=== PATIENT | female | born 1945 | race Asian ===

== ENCOUNTER 2017-11-08 13:23 | Emergency (ER) | payer OTHER ==
[~2017-11-08] VITALS: Ht 129.5 cm; Wt 59.0 kg
[~2017-11-08 13:23] MED LIST: AMLO5TAB PO; COZ50 PO; FERR-15 PO; NIFE60TE5 PO; PANT40EC PO; WARF3TAB PO; [UNRECOGNIZED DRUG - CODE] PO
[2017-11-08 13:47] VITALS: BP 171/82
--- NOTE | 2017-11-08 14:48 | NUR ---
Patient being evaluated by physician at bedside.
--- NOTE | 2017-11-08 14:54 | NUR ---
72Y/F C/O LT HIP PAIN X 3 DAYS; DENIES TRAUMA OR INJURY. HX; DM, HTN. RX; LISINOPRIL, LOSARTAN, PROCARDIA. PATIENT STATES PAIN OF 10/10 AT THIS TIME; PATIENT POSITIONED FOR COMFORT; ER MD MADE AWARE OF PT STATUS.
--- NOTE | 2017-11-08 14:59 | NUR ---
PT WENT TO RADIOLOGY
[2017-11-08 16:35] VITALS: BP 168/79
--- NOTE | 2017-11-08 16:35 | NUR ---
Patient discharged with v/s stable. Written and verbal after care instructions given and explained. Patient alert, oriented and verbalized understanding of instructions. Wheel Chair Assisted with by caregiver. All questions addressed prior to discharge. ID band removed. Patient advised to follow up with PMD. Rx of TYLENOL W/CODIENE given. Patient educated on indication of medication including possible reaction and side effects. Opportunity to ask questions provided and answered.
== END 2017-11-08 16:35 | disposition home or self-care (01) ==
LOC: MED 13:23
DX: M70.72 Other bursitis of hip, left hip (principal); Y93.89 Activity, other specified; Z91.041 Radiographic dye allergy status
CPT/HCPCS: 73502; 99284

== ENCOUNTER 2018-05-20 12:54 | Emergency (ER) | payer OTHER ==
[~2018-05-20] VITALS: Ht 129.5 cm; Wt 61.7 kg
[2018-05-20 13:08] VITALS: BP 139/59
--- NOTE | 2018-05-20 13:08 | NUR ---
PT AMBULATES TO BED 9
--- NOTE | 2018-05-20 13:15 | NUR ---
BIB BY MOTHER W/C/O FALL TODAY AT 1200. PT STATES SHE WAS GOING FOR HER WALKER AND FELL ON HER BOTTOM ON THE CARPET. PT DENIES HITTING HER HEAD. DENIES LOC. PT AAOX4, AMBULATORY. PT DENIES N/V/D; SKIN IS PINK/WARM/DRY; AAOX4, PERRL, WITH EVEN AND STEADY GAIT; LUNGS CLEAR BL, BREATHING UNLABORED; HR EVEN AND REGULAR, BL PERIPHERAL PULSES PRESENT; BS ACTIVE X4, NO TENDERNESS TO PALPATION, NO HEPATOSPLENOMEGALLY PALPATED, RESONANT TO PERCUSSION; PT DENIES ANY FEVER, CP, SOB, OR COUGH AT THIS TIME; PT STATES 6/10 PAIN AT THIS TIME; VSS; PATIENT POSITIONED FOR COMFORT; HOB ELEVATED; BEDRAILS UP X2; BED DOWN. HX: COLON CA SX, OPEN HEART SURGERY, HTN RX: ATENALOL, COUMADIN, AMLODIPINE, CARVIDILOL ALLERGIES: SEAFOOD, IODINE
--- NOTE | 2018-05-20 13:16 | NUR ---
PT HAS 4.5CMX 0.5CM LAC TO R KNEE, BLEEDING WELL CONTROLLED
--- NOTE | 2018-05-20 13:23 | NUR ---
PT MOTHER INFORMED ME AT THIS TIME THAT PT HAS HAD DIARRHEA X2 DAYS AND THAT IS WHY SHE FELL. DR. VALENTINE MADE AWARE
[2018-05-20] MEDS ORDERED: KETOROLAC 60 MG/2 ML VIAL IM ONE (13:30)
--- NOTE | 2018-05-20 13:43 | NUR ---
PT TAKEN TO X-RAY AT THIS TIME
--- NOTE | 2018-05-20 13:50 | NUR ---
Abraham estevez in ED - 05/20/18 at 1441 by PATRICIO PT BACK FROM X-RAY
--- NOTE | 2018-05-20 13:57 | NUR ---
PT BACK FROM X-RAY
[2018-05-20 14:02] LABS: BASOPHILS % (AUTO) 0.3 % (0.0-2.0); EOSINOPHILS # (AUTO) 0.3 K/uL (0-0.4); HEMATOCRIT 35.7 % (36-48); HEMOGLOBIN 11.7 g/dL (12.0-16.0); LYMPHOCYTES # (AUTO) 0.3 K/uL (2.5-16.5); LYMPHOCYTES % (AUTO) 3.3 % (20.5-51.1); MEAN CORPUSCULAR HEMOGLOBIN 29 pg (27-31); MEAN CORPUSCULAR HGB CONC 33 g/dL (33-37); MEAN CORPUSCULAR VOLUME 89.8 fL (80-94); MONOCYTES # (AUTO) 0.9 K/uL (0.8-1.0); MONOCYTES % (AUTO) 9.1 % (1.7-9.3); NEUTROPHILS # (AUTO) 8.4 K/uL (1.8-7.7); NEUTROPHILS % (AUTO) 84.3 % (42.2-75.2); PLATELET COUNT (AUTO) 154 K/uL (140-450); RED BLOOD CELL COUNT(AUTO) 3.98 MIL/uL (4.20-5.40); RED CELL DISTRIBUTION WIDTH 13.5 % (11.6-13.7)
[2018-05-20 14:11] LABS: ANION GAP 9.1 (8-16); CARBON DIOXIDE 32.1 mmol/L (21-32); CHLORIDE 103 mmol/L (98-107); CREATININE 1.1 mg/dL (0.6-1.3); GLUCOSE 167 mg/dL (74-106); POTASSIUM 3.2 mmol/L (3.5-5.1); SODIUM SERUM 141 mmol/L (136-145); UREA NITROGEN, BLOOD 23 mg/dL (7-18)
[2018-05-20 14:18] LABS: ALBUMIN 2.9 g/dL (3.4-5.0); ASPARTATE AMINOTRANSFERASE 46 U/L (15-37); TOTAL BILIRUBIN 0.4 mg/dL (0.0-1.0)
[2018-05-20 14:21] LABS: APPEARANCE,URINE CLEAR (CLEAR); COLOR,URINE YELLOW (YELLOW)
[2018-05-20 14:22] LABS: BILIRUBIN,URINE NEGATIVE (NEGATIVE); BLOOD, URINE NEGATIVE (NEGATIVE); LEUKOCYTE ESTERASE ,URINE NEGATIVE (NEGATIVE); NITRITE, URINE NEGATIVE (NEGATIVE); UGLUCOSE NEGATIVE (NEGATIVE)
[2018-05-20] MEDS ORDERED: POTASSIUM CHLORIDE 10 MEQ TABER PO ONE (15:20)
--- NOTE | 2018-05-20 15:21 | NUR ---
Patient being evaluated by physician at bedside.
[2018-05-20 15:54] VITALS: BP 135/72
--- NOTE | 2018-05-20 15:55 | NUR ---
Patient discharged with v/s stable. Written and verbal after care instructions given and explained. Patient alert, oriented and verbalized understanding of instructions. Ambulatory with steady gait. All questions addressed prior to discharge. ID band removed. Patient advised to follow up with PMD. Rx of IMODIUM, MOTRIN given. Patient educated on indication of medication including possible reaction and side effects. Opportunity to ask questions provided and answered.
== END 2018-05-20 15:55 | disposition home or self-care (01) ==
LOC: MED 12:54
DX: S81.011A Laceration without foreign body, right knee, initial encounter (principal); R19.7 Diarrhea, unspecified; I10 Essential (primary) hypertension; Z85.038 Personal history of other malignant neoplasm of large intestine; Z91.013 Allergy to seafood; Z88.8 Allergy status to other drugs, medicaments and biological substances; Z79.899 Other long term (current) drug therapy; W18.39XA Other fall on same level, initial encounter; Y93.89 Activity, other specified; Y92.89 Other specified places as the place of occurrence of the external cause; Y99.8 Other external cause status
CPT/HCPCS: 12002; 36415; 72220; 80053; 81003; 85025; 96372; 99285; J1885

== ENCOUNTER 2018-09-26 09:10 | Emergency (ER) | payer OTHER ==
[~2018-09-26] VITALS: Ht 142.2 cm; Wt 59.0 kg
[2018-09-26 09:30] VITALS: BP 122/48
--- NOTE | 2018-09-26 09:43 | NUR ---
accompanied by daughter c/o lower back pain s/p mechanical fall; pt attempting to remove one shoe with the other foot leaned against wall and slipped back denies head injury or dizziness
[2018-09-26] MEDS ORDERED: HYDROcodone/APAP 5/325 MG 1 TAB TAB PO ONE (10:15)
[2018-09-26] MEDS ORDERED: ONDANSETRON 4 MG ODT PO ONE (10:15)
--- NOTE | 2018-09-26 10:23 | NUR ---
PT TAKEN TO [facility] VIA DESIREE
[2018-09-26 11:07] VITALS: BP 122/48
--- NOTE | 2018-09-26 11:08 | NUR ---
Patient discharged with v/s stable. Written and verbal after care instructions given and explained. Patient alert, oriented and verbalized understanding of instructions. Wheel Chair Assisted with to car. All questions addressed prior to discharge. ID band removed. Patient advised to follow up with PMD. Rx of norco/zofran given. Patient educated on indication of medication including possible reaction and side effects. Opportunity to ask questions provided and answered.
== END 2018-09-26 11:08 | disposition home or self-care (01) ==
LOC: MED 09:10
DX: S30.0XXA Contusion of lower back and pelvis, initial encounter (principal); I10 Essential (primary) hypertension; G89.29 Other chronic pain; Z91.013 Allergy to seafood; Z98.890 Other specified postprocedural states; Z79.01 Long term (current) use of anticoagulants; Z79.899 Other long term (current) drug therapy; Z85.038 Personal history of other malignant neoplasm of large intestine; W01.0XXA Fall on same level from slipping, tripping and stumbling without subsequent striking against object, initial encounter; Y93.01 Activity, walking, marching and hiking; Y92.89 Other specified places as the place of occurrence of the external cause; Y99.8 Other external cause status
CPT/HCPCS: 72100; 72220; 99283; Q0162

== ENCOUNTER 2019-05-26 13:53 | Emergency (ER) | payer OTHER ==
[~2019-05-26] VITALS: Ht 137.2 cm; Wt 55.8 kg
[~2019-05-26 13:53] MED LIST changes: -COZ50 PO; +LOSA50TA57 PO
[2019-05-26 14:10] VITALS: BP 175/83
--- NOTE | 2019-05-26 14:32 | NUR ---
PT REFFERED TO ER BY PCP FOR "INR ABOVE 10". PT TAKES 3MG COUMADIN DAILY, LAST TAKEN 2 DAYS AGO. LAST SET OF LABS WERE DRAWN YESTERDAY. PT DENIED SYMPTOMS/ILLNESS HX: CARDIAC SURGERY, LUNG CA, PNEUMONECTOMY RX: COUMADIN, SEE MED REC. DENIES N/V/D; SKIN IS PINK/WARM/DRY; AWAKE, ALERT. LUNGS CLEAR BL; HR EVEN AND REGULAR; PT DENIES ANY FEVER, CP, SOB, OR COUGH AT THIS TIME; PATIENT STATES PAIN OF 0/10 AT THIS TIME; PATIENT POSITIONED FOR COMFORT; HOB ELEVATED; BEDRAILS UP X2; BED DOWN. ER MD MADE AWARE OF PT STATUS.DAUGHTER AT BEDSIDE.
--- NOTE | 2019-05-26 14:39 | NUR ---
LAB AT BEDSIDE
[2019-05-26 14:58] LABS: BASOPHILS % (AUTO) 0.4 % (0.0-2.0); EOSINOPHILS % (AUTO) 0.5 % (0.0-4.0); HEMATOCRIT 34.5 % (36-48); HEMOGLOBIN 11.3 g/dL (12.0-16.0); LYMPHOCYTES # (AUTO) 0.6 K/uL (2.5-16.5); LYMPHOCYTES % (AUTO) 8.2 % (20.5-51.1); MEAN CORPUSCULAR HEMOGLOBIN 31 pg (27-31); MEAN CORPUSCULAR HGB CONC 33 g/dL (33-37); MEAN CORPUSCULAR VOLUME 93.1 fL (80-94); MONOCYTES # (AUTO) 0.4 K/uL (0.8-1.0); MONOCYTES % (AUTO) 5.1 % (1.7-9.3); NEUTROPHILS # (AUTO) 6.3 K/uL (1.8-7.7); NEUTROPHILS % (AUTO) 85.8 % (42.2-75.2); PLATELET COUNT (AUTO) 193 K/uL (140-450); RED CELL DISTRIBUTION WIDTH 13.5 % (11.6-13.7); WHITE BLOOD COUNT (AUTO) 7.4 K/uL (4.8-10.8)
[2019-05-26 15:12] LABS: ANION GAP 7.6 (8-16); CARBON DIOXIDE 33.5 mmol/L (21-32); CHLORIDE 104 mmol/L (98-107); CREATININE 1.1 mg/dL (0.6-1.3); GLUCOSE 118 mg/dL (74-106); POTASSIUM 5.1 mmol/L (3.5-5.1); SODIUM SERUM 140 mmol/L (136-145); UREA NITROGEN, BLOOD 17 mg/dL (7-18)
[2019-05-26 15:13] LABS: PROTHROMBIN TIME 31.7 secs (10.8-13.4)
[2019-05-26 15:18] LABS: ALBUMIN 3.2 g/dL (3.4-5.0); ASPARTATE AMINOTRANSFERASE 20 U/L (15-37); TOTAL BILIRUBIN 0.3 mg/dL (0.0-1.0)
[2019-05-26 15:55] VITALS: BP 156/76
--- NOTE | 2019-05-26 15:55 | NUR ---
Patient discharged with v/s stable. Written and verbal after care instructions given and explained. Patient verbalized understanding. Ambulatory with steady gait. All questions addressed prior to discharge. Patient instructed to continue taking coumadin as prescribed. Advised to follow up with PMD.
== END 2019-05-26 15:55 | disposition home or self-care (01) ==
LOC: MED 13:53
DX: R79.9 Abnormal finding of blood chemistry, unspecified (principal); I10 Essential (primary) hypertension; Z79.01 Long term (current) use of anticoagulants; Z79.899 Other long term (current) drug therapy; Z85.118 Personal history of other malignant neoplasm of bronchus and lung; Z98.890 Other specified postprocedural states
CPT/HCPCS: 36415; 80053; 85025; 85610; 99283

== ENCOUNTER 2019-09-29 08:47 | Day surgery (SDC) | payer OTHER ==
[~2019-09-29] VITALS: Ht 134.6 cm; Wt 56.7 kg
[2019-09-29] MEDS ORDERED: fentaNYL 0.05 MG/ML VIAL ONE (09:53)
[2019-09-29] MEDS ORDERED: LIDOCAINE 2% 100 MG/5 ML UJET TP ONE ×2 (09:54→09:59)
== END 2019-09-29 11:15 | disposition home or self-care (01) ==
LOC: MDS 08:47 → MMU 08:48 → MDS 11:15
PROVIDERS: ATTEND Internal Medicine Gastroenterology
DX: Z12.11 Encounter for screening for malignant neoplasm of colon (principal); I10 Essential (primary) hypertension; Z90.49 Acquired absence of other specified parts of digestive tract; Z98.0 Intestinal bypass and anastomosis status; Z85.038 Personal history of other malignant neoplasm of large intestine; Z98.890 Other specified postprocedural states; Z91.048 Other nonmedicinal substance allergy status; Z91.013 Allergy to seafood
CPT/HCPCS: 45378; J3010

== ENCOUNTER 2020-01-05 16:23 | Emergency (ER) | payer OTHER, SELFPAY ==
[~2020-01-05] VITALS: Ht 157.5 cm; Wt 74.8 kg
[2020-01-05 16:28] VITALS: BP 132/87
--- NOTE | 2020-01-05 16:36 | NUR ---
BIB DAUGHTER, DAUGHTER STATES PT IS HAVING COUGH SINCE YESTERDAY/ BODY ACHES AND SUBJECTIVE FEVER. PT IS AFEBRILE. RESP EVEN AND UNLABORED, NO SOB. DAUGHTER STATES PTS FRIEND WAS TESTED + FOR COVID AND PT WAS IN CLOSE CONTACT WITH FRIEND. VSS. PT ABLE TO AMBULATE TO TENT. SPO2 100 RA PMH: HTN ALLERGIES: IODINE
[2020-01-05 17:21] VITALS: BP 132/87
--- NOTE | 2020-01-05 17:21 | NUR ---
COVID SWAB PERFORMED IN TENT AND SENT TO LAB
--- NOTE | 2020-01-05 17:22 | NUR ---
Patient discharged with v/s stable. Written and verbal after care instructions given and explained. Patient alert, oriented and verbalized understanding of instructions. Ambulatory with by caregiver. All questions addressed prior to discharge. ID band removed. Patient advised to follow up with PMD. Rx of IBUPROFEN, ACETAMINOPHEN given. Patient educated on indication of medication including possible reaction and side effects. Opportunity to ask questions provided and answered.
--- NOTE | 2020-01-07 01:07 | NUR ---
LATE ENTRY--RECEVIED A NEGATIVE COVID SWAB. RESULT GIVEN TO INFECTION CONTROL OFFICE.
== END 2020-01-05 17:22 | disposition home or self-care (01) ==
LOC: EEVIPCON 16:23 → MED 16:23
DX: R50.9 Fever, unspecified (principal); I10 Essential (primary) hypertension; M79.10 Myalgia, unspecified site; R05 Cough; Z20.828 Contact with and (suspected) exposure to other viral communicable diseases; Z79.899 Other long term (current) drug therapy; Z98.890 Other specified postprocedural states; Z85.3 Personal history of malignant neoplasm of breast
CPT/HCPCS: 99283; C9803; U0003; 36415